=== PATIENT | female | born 1990 | race Caucasian/White ===

== ENCOUNTER 2017-02-21 11:04 | Day surgery (SDC) | payer BC ==
[2017-02-19 13:44] LABS: BASOPHILS 0.4 %; BASOPHILS ABSOLUTE 0.02 10/3/uL (0.0-0.16); EOSINOPHILS ABSOLUTE 0.11 10/3/uL (0.0-0.53); HEMOGLOBIN 9.9 g/dL (12.0-16.0); IMMATURE GRANULOCYTES 0.2 %; IMMATURE GRANULOCYTES ABSOLUTE 0.01 10/3/uL (0.0-0.11); LYMPHOCYTES 37.4 %; LYMPHOCYTES ABSOLUTE 2.08 10/3/uL (0.67-4.30); MEAN CORPUS HGB CONC 29.6 g/dL (32.0-36.0); MEAN CORPUSCULAR HEMOGLOB 20.2 pg (26.0-34.0); MEAN PLATELET VOLUME 10.6 fL (9.2-13.0); MONOCYTES 6.8 %; MONOCYTES ABSOLUTE 0.38 10/3/uL (0.21-1.20); NEUTROPHILS 53.2 %; NEUTROPHILS ABSOLUTE 2.96 10/3/uL (2.02-8.40)
[2017-02-19 13:47] LABS: HEMATOCRIT 33.4 % (36.0-48.0); MANUAL DIFF NO %; MEAN CORPUSCULAR VOLUME 68.2 fL (80-100); PLATELET COUNT 325 10/3/uL (150-400); WHITE BLOOD CELLS 5.6 10/3/uL (4.5-10.5)
[2017-02-19 14:01] LABS: A/G RATIO 1.4 (0.7-1.9); ALBUMIN 4.1 G/DL (3.5-5.0); ALKALINE PHOSPHATASE 62 U/L (45-117); BUN (BLOOD UREA NITROGEN) 9 MG/DL (6-23); CALCIUM, SERUM 9.5 MG/DL (8.5-10.4); CHLORIDE, SERUM 108 MMOL/L (96-112); CO2 (CARBON DIOXIDE) 26 MMOL/L (24-34); CREATININE 0.63 MG/DL (0.55-1.02); GFR AFRICAN AMERICAN 143 ML/MIN (>=60); GFR NON AFRICAN AMERICAN 124 ML/MIN (>=60); GLUCOSE, SERUM 93 MG/DL (60-99); POTASSIUM, SERUM 4.7 MMOL/L (3.5-5.3); SGOT(AST) 12 U/L (5-40); SGPT(ALT) 16 U/L (5-65); SODIUM, SERUM 143 MMOL/L (135-148); TOTAL BILIRUBIN 0.3 MG/DL (0-1.2); TOTAL PROTEIN 7.1 G/DL (6.0-8.5)
[2017-02-19 14:06] LABS: PLATELET ESTIMATE ADQ (ADEQUATE)
[2017-02-19 14:07] LABS: HYPOCHROMIA 3+ (>30/OIF) (0-2/OIF)
[2017-02-19 14:08] LABS: ELLIPTOCYTES 1+ (3-10/OIF) (0-2/OIF)
[2017-02-19 15:51] LABS: ASCORBIC ACID (UR NOT ORDER) NEG (NEG); BILIRUBIN, URINE NEGATIVE (NEG); KETONE, URINE NEGATIVE (NEG); LEUKOCYTE ESTERASE(NOT OR TRACE (NEG); WBC (NOT ORDERED) (RFLEX) 1 (0-5)
--- NOTE | ~2017-02-21 | OP ---
Record Of Operation [facility] [address] [place]. [address] NAME: NICO CARL : 89 STATUS : [facility] UNIT#: [id number] AGE: 26 ADM/REG DATE : 02/21/17 MR#: [id number] REPORT SERV DATE: 02/22/17 DICTATED BY: JOHN LAU DATE: 02/22/17 REPORT STATUS : Draft TRANSCRIBED BY: MODL DATE: 02/22/17 DATE OF PROCEDURE: 02/21/2017 PREOPERATIVE DIAGNOSIS: Sludge in the gallbladder with a diminished gallbladder ejection fraction on HIDA, symptoms typical of gallbladder disease. POSTOPERATIVE DIAGNOSIS: Sludge in the gallbladder with a diminished gallbladder ejection fraction on HIDA, symptoms typical of gallbladder disease. PROCEDURE: Laparoscopic cholecystectomy with intraoperative cholangiogram. ANESTHESIA: General endotracheal. ESTIMATED BLOOD LOSS: Nil. FLUIDS: Crystalloid. SPECIMEN: Gallbladder. DRAINS: None. COMPLICATIONS: None. CONDITION: Good. INDICATIONS: Ms. Carl is a 26-year-old, who has undergone weight loss surgery/gastric bypass by Dr. Boswell at [facility] a number of years ago with significant and maintained weight loss. She has developed symptoms compatible with gallbladder disease with sludge in the gallbladder and a diminished ejection fraction. Dr. Boswell has evaluated, did not feel that there was any problem related to her antiobesity surgery, and we are therefore proceeding with cholecystectomy to try to get symptom relief. PROCEDURE IN DETAIL: After being identified in the preoperative holding, she was brought to the operating room and positioned supine. General endotracheal anesthesia was induced. Time-out was performed. The abdomen was prepped and draped sterilely. She received Ancef intravenously. 0.5% Marcaine was infiltrated. Infraumbilical vertical skin incision was made. The skin was grasped with towel clips, elevated, and a Veress needle was inserted into the peritoneal cavity as confirmed by saline drop test. A 15 mm carbon dioxide pneumoperitoneum was created. The Veress needle was removed and a 5 mm trocar was inserted. A 30-degree laparoscope was inserted within the peritoneal cavity. There was no visceral injury. There were no adhesions. There was a loop of small bowel that went up into the upper abdomen antecolic. Gallbladder was unremarkable. She was positioned head up, foot down, rolled right side up. After Marcaine infiltration and appropriate skin incision, a 10 mm trocar was inserted subxiphoid. Two 5 mm were inserted subcostally on the right in the midclavicular and anterior axillary line. Gallbladder was now grasped and elevated. There were no adhesions. Peritoneal folds at the neck of the gallbladder were dissected. Cystic Record Of Operation [facility] [address] [place]. [address] NAME: NICO CARL : 89 STATUS : [facility] UNIT#: [id number] AGE: 26 ADM/REG DATE : 02/21/17 MR#: [id number] REPORT SERV DATE: 02/22/17 DICTATED BY: JOHN LAU DATE: 02/22/17 REPORT STATUS : Draft TRANSCRIBED BY: FRENCH DATE: 02/22/17 artery was actually superficial to the cystic duct. This was dissected circumferential, clipped x3, divided between the middle clip on the gallbladder side. We next dissected the small cystic duct circumferential that egressed the gallbladder. I have coursed the gallbladder and then we placed an occlusive clip across the neck. A cystic ductotomy was made. A cholangiogram catheter was inserted and anchored. Fluoroscopy was brought on the field. Cholangiogram revealed a narrow spiraling cystic duct that coursed into a nondilated common duct with flow of contrast into the duodenum. There was reflux into the proper hepatic duct as well as the left and right main hepatic ducts. With a normal anatomy, no dilation, no filling defects, and contrast noted going readily into duodenum. We took fluoro off the field and reinserted the laparoscopic instrumentation. Gallbladder was now re-retracted, cholangiogram catheter was removed, and the cystic duct was clipped occlusively x3 on the common duct side of cannulation and then the cystic duct was divided at the point of cannulation. Hook cautery was then used to dissect the gallbladder out of gallbladder fossa, this went smoothly without getting in the liver or the gallbladder. The gallbladder was placed in EndoCatch and extracted out the subxiphoid trocar path. Now, carefully inspected the operative field, suctioning all fluid. There was no bleeding. Good clip positioning. No evidence of bile leak. At this point, Ms. Carl was brought supine, upper abdominal trocars were removed with visualization through laparoscope, there was no bleeding. The abdomen was desufflated and the infraumbilical laparoscope and trocar were removed. Dermis was closed in all incisions with 4-0 Monocryl followed by Benzoin and Steri-Strips, and sterile dressing. Ms. Carl tolerated the surgery well. She was recovered from anesthetic, extubated, and transported to the recovery room in good condition. FIGUEROA/FRENCH John Lau M.D. / [id number] CC: Tan Onofre CYNTHIA
[~2017-02-21 11:04] MED LIST: CALCIUM PO
== END 2017-02-21 20:57 | disposition home or self-care (01) ==
LOC: SDC 11:04
PROVIDERS: Surgery
PROC: BF12YZZ Fluoroscopy of Gallbladder using Other Contrast (ICD-10-PCS; 2017-02-21)
PROC: 0FT44ZZ Resection of Gallbladder, Percutaneous Endoscopic Approach (ICD-10-PCS; principal; 2017-02-21 12:45)
DX: K80.10 Calculus of gallbladder with chronic cholecystitis without obstruction (principal); D64.9 Anemia, unspecified; Z98.84 Bariatric surgery status
CPT/HCPCS: 74300; 80053; 81001; 82150; 84703; 85025; 88304; A9270-GY; J0690; J1170; J2250; J2270; J2405; J2710; J3010; Q9967